=== PATIENT | female | born 1940 | race Caucasian/White ===

== ENCOUNTER 2017-12-15 11:10 | Emergency (ER) | payer MEDICARE, MEDICAID ==
[~2017-12-15] VITALS: Ht 154.9 cm; Wt 90.9 kg
[2017-12-15 12:14] LABS: BASOPHILS % (AUTO) 0.2 % (0-1); EOSINOPHILS # (AUTO) 0.2 X10'3 (0-0.9); EOSINOPHILS % (AUTO) 1.4 % (0-6); HEMATOCRIT 38.9 % (35.0-45.0); HEMOGLOBIN 13.1 g/dl (12.0-16.0); LYMPHOCYTES # (AUTO) 1.9 X10'3 (1.1-4.8); LYMPHOCYTES % (AUTO) 14.4 % (21-51); MEAN CORPUSCULAR HEMOGLOBIN 26.3 PG (27.0-31.0); MEAN CORPUSCULAR HGB CONC 33.6 % (33.0-36.5); MEAN CORPUSCULAR VOLUME 78.4 FL (78-98); MEAN PLATELET VOLUME 8.2 FL (7.4-10.4); MONOCYTES # (AUTO) 0.5 X10'3 (0-0.9); MONOCYTES % (AUTO) 4.1 % (2-12); NEUTROPHILS # (AUTO) 10.5 X10'3 (1.8-7.7); NEUTROPHILS % (AUTO) 79.9 % (42-75); PLATELET COUNT 306 X10'3 (140-440); RED BLOOD COUNT 4.96 X10'6 (4.20-5.60); RED CELL DISTRIBUTION WIDTH 14.5 % (11.5-14.5); WHITE BLOOD COUNT 13.1 X10'3 (4.5-11.0)
[2017-12-15] MEDS ORDERED: ipratropium/albuterol 3ml nebule NEB ONE (12:25)
[2017-12-15 12:28] LABS: ALANINE AMINOTRANSFERASE 20 U/L (12-78); ALBUMIN 3.4 G/DL (3.4-5.0); ALBUMIN/GLOBULIN RATIO 0.7 (1.1-1.5); ALKALINE PHOSPHATASE 67 IU/L (46-116); ANION GAP 9 (8-16); ASPARTATE AMINO TRANSFERASE 14 U/L (10-37); BILIRUBIN,TOTAL 0.3 MG/DL (0.1-1.0); BLOOD UREA NITROGEN 16 MG/DL (7-18); BUN/CREATININE RATIO 12.5 (6.6-38.0); CALCIUM 9.8 MG/DL (8.5-10.1); CHLORIDE 101 MMOL/L (99-107); CREATININE 1.28 MG/DL (0.40-0.90); GLUCOSE 141 MG/DL (70-104); POTASSIUM 5.1 MMOL/L (3.5-5.1); SODIUM 143 MMOL/L (135-145); TOTAL CARBON DIOXIDE 33.3 MMOL/L (24-32); TOTAL PROTEIN 8.1 G/DL (6.4-8.2); eGFR 41 ML/MIN
[2017-12-15] MEDS ORDERED: ondansetron 4mg rapidly disintigrating tab PO ONE (12:30)
[2017-12-15 12:34] LABS: PARTIAL THROMBOPLASTIN TIME 28 SECONDS (22-32); PROTHROMBIN TIME 10.2 SECONDS (9.0-12.0)
[2017-12-15 12:50] LABS: CLARITY,URINE CLEAR (Clear); COLOR,URINE YELLOW (Yellow); GLUCOSE, URINE NEGATIVE (Neg); KETONES,URINE NEGATIVE (Neg); LEUKOCYTE ESTERASE ,URINE TRACE (Neg); NITRITES, URINE NEGATIVE (Neg); OCCULT BLOOD,URINE NEGATIVE (Neg); PROTEIN,URINE NEGATIVE (Neg); UROBILINOGEN,URINE 0.2 E.U/dL (0.2-1.0)
[2017-12-15 12:54] LABS: UA COLLECTION TYPE STRAIGHT CATH
[2017-12-15 12:57] LABS: BACTERIA,URINE 1+ /HPF (Neg); HYALINE CASTS 0-3 /LPF (NEGATIVE); MUCUS STRANDS NONE SEEN /LPF (Neg); RBC,URINE NONE SEEN /HPF (0-2); SQUAMOUS EPITHELIAL CELL,UR NONE SEEN /LPF (FEW)
[2017-12-15] MEDS ORDERED: normal saline 1000ML IV soln IV ONE (13:15)
[2017-12-15] MEDS ORDERED: levoFLOXACIN 250mg tablet PO ONE (14:05)
[2017-12-15] MEDS ORDERED: zinc oxide ointment 30gm tube TP ONE ×2 (15:55→20:00)
[2017-12-15 16:11] VITALS: BP 134/96
== END 2017-12-15 16:14 | disposition home or self-care (01) ==
LOC: ER 11:11
DX: N39.0 Urinary tract infection, site not specified (principal); E87.2 Acidosis; I10 Essential (primary) hypertension; Z90.49 Acquired absence of other specified parts of digestive tract; Z98.890 Other specified postprocedural states; Z60.2 Problems related to living alone
CPT/HCPCS: 36415; 71045; 80053; 81001; 83605; 83880; 84145; 84484; 85025; 85610; 85730; 87040; 87077; 87088; 87186; 93005; 94640; 94760; 99285; J7030

== ENCOUNTER 2018-07-09 10:51 | Inpatient (IN) | payer MEDICARE, MEDICAID ==
[~2018-07-09] VITALS: Ht 165.1 cm; Wt 90.9 kg
[2018-07-09] MEDS ORDERED: normal saline 1000ML IV soln IVB ONE (11:25)
[2018-07-09 11:37] LABS: BASOPHILS # (AUTO) 0.1 X10'3 (0-0.2); BASOPHILS % (AUTO) 0.7 % (0-1); EOSINOPHILS # (AUTO) 0.1 X10'3 (0-0.9); EOSINOPHILS % (AUTO) 1.2 % (0-6); HEMATOCRIT 31.3 % (35.0-45.0); HEMOGLOBIN 10.5 g/dl (12.0-16.0); LYMPHOCYTES # (AUTO) 1.1 X10'3 (1.1-4.8); LYMPHOCYTES % (AUTO) 15.4 % (21-51); MEAN CORPUSCULAR HEMOGLOBIN 27.1 PG (27.0-31.0); MEAN CORPUSCULAR HGB CONC 33.6 % (33.0-36.5); MEAN CORPUSCULAR VOLUME 80.6 FL (78-98); MEAN PLATELET VOLUME 7.7 FL (7.4-10.4); MONOCYTES # (AUTO) 0.4 X10'3 (0-0.9); MONOCYTES % (AUTO) 6.1 % (2-12); NEUTROPHILS # (AUTO) 5.5 X10'3 (1.8-7.7); NEUTROPHILS % (AUTO) 76.6 % (42-75); PLATELET COUNT 290 X10'3 (140-440); RED BLOOD COUNT 3.88 X10'6 (4.20-5.60); RED CELL DISTRIBUTION WIDTH 14.4 % (11.5-14.5); WHITE BLOOD COUNT 7.2 X10'3 (4.5-11.0)
[2018-07-09 11:50] LABS: INR 1.1 INR; PARTIAL THROMBOPLASTIN TIME 36 SECONDS (22-32); PROTHROMBIN TIME 11.5 SECONDS (9.0-12.0)
[2018-07-09 11:52] LABS: ALANINE AMINOTRANSFERASE 15 U/L (12-78); ALBUMIN 2.5 G/DL (3.4-5.0); ALBUMIN/GLOBULIN RATIO 0.6 (1.1-1.5); ALKALINE PHOSPHATASE 79 IU/L (46-116); ANION GAP 10 (8-16); ASPARTATE AMINO TRANSFERASE 13 U/L (10-37); BILIRUBIN,TOTAL 0.6 MG/DL (0.1-1.0); BLOOD UREA NITROGEN 9 MG/DL (7-18); BUN/CREATININE RATIO 9.5 (6.6-38.0); CALCIUM 8.8 MG/DL (8.5-10.1); CHLORIDE 103 MMOL/L (99-107); CREATININE 0.95 MG/DL (0.40-0.90); GLUCOSE 170 MG/DL (70-104); LIPASE 196 U/L (73-393); MAGNESIUM 1.7 MG/DL (1.5-2.4); POTASSIUM 4.1 MMOL/L (3.5-5.1); SODIUM 137 MMOL/L (135-145); TOTAL CARBON DIOXIDE 23.7 MMOL/L (24-32); TOTAL PROTEIN 6.9 G/DL (6.4-8.2); eGFR 57 ML/MIN
--- NOTE | 2018-07-09 13:16 | NUR ---
PATIENT'S DAUGHTER, MAYKEL, CALLED FOR CONDITION REPORT. INFORMED THAT THE WORK-UP WAS STILL IN PROGRESS. MAYKEL CONTACT NUMBER: [phone].
[2018-07-09 13:27] LABS: CLARITY,URINE CLEAR (Clear); COLOR,URINE YELLOW (Yellow); GLUCOSE, URINE NEGATIVE (Neg); KETONES,URINE NEGATIVE (Neg); LEUKOCYTE ESTERASE ,URINE SMALL (Neg); NITRITES, URINE NEGATIVE (Neg); OCCULT BLOOD,URINE NEGATIVE (Neg); PH,URINE 5.5 (4.8-8.0); PROTEIN,URINE NEGATIVE (Neg); UROBILINOGEN,URINE 0.2 E.U/dL (0.2-1.0)
[2018-07-09 13:33] LABS: UA COLLECTION TYPE STRAIGHT CATH
[2018-07-09 13:34] LABS: BACTERIA,URINE FEW /HPF (Neg); MUCUS STRANDS FEW /LPF (Neg); RBC,URINE NONE SEEN /HPF (0-2); SQUAMOUS EPITHELIAL CELL,UR FEW /LPF (FEW); WBC,URINE 20-30 /HPF (0-4)
[2018-07-09] MEDS ORDERED: CefTRIAXone/D5W-Rocephin 1gm 50 ML IV ONE (13:45)
[2018-07-09] MEDS ORDERED: CIPR-230 PO (13:45)
--- NOTE | 2018-07-09 14:50 | NUR ---
TELEPHONE CALL TO POST ACUTE FACILITY ([facility]) WITH UPDATE AND TO INFORM OF PATIENT DC STATUS. NURSE STATES THAT FAMILY IS CONCERNED THAT PATIENT HAS BEEN HAVING DIFFICULTY SWALLOWING SINCE TUESDAY. ER MD NOTIFIED AND REQUESTED SWALLOW CHALLENGE.
--- NOTE | 2018-07-09 15:00 | NUR ---
PATIENT GIVEN 3 SIPS OF WATER. PATIENT DROOPING WATER OUT OF OPEN MOUTH AND HAD COUGHING EPISODE WITH FINAL SIP. ER MD NOTIFIED OF FAILED WATER INTRODUCTION.
--- NOTE | 2018-07-09 15:41 | NUR ---
RETURNED FROM CT SCAN PER KATIUSKA.
[2018-07-09] MEDS ORDERED: mag hydrox/Alum hydrox/simeth 30ml oral suspension PO PRN (16:05)
[2018-07-09] MEDS ORDERED: acetaminophen 325mg tablet PO PRN (16:05)
[2018-07-09] MEDS ORDERED: ondansetron/PF 4mg/2ml inj IV PRN (16:05)
[2018-07-09] MEDS ORDERED: aspirin 300mg supp.rect RC SCH (16:05)
[2018-07-09] MEDS ORDERED: magnesium hydroxide 30ml (MOM) UD suspension PO PRN ×2 (16:05→17:40)
--- NOTE | 2018-07-09 16:26 | NUR ---
Patient's daughter, Andreina, called in for condition report.
[2018-07-09 16:36] LABS: CHOL/HDL RATIO 3.6 (0.00-4.99); CHOLESTEROL 132 MG/DL (0-200); HDL CHOLESTEROL 37 MG/DL (35-60); LDL CHOLESTEROL 75 MG/DL (50-100); TRIGLYCERIDES 132 MG/DL (20-135)
[2018-07-09] MEDS ORDERED: QUET50TA PO ×2 (16:42→17:11)
[2018-07-09] MEDS ORDERED: CALC355O3 PO (16:42)
[2018-07-09] MEDS ORDERED: DIGO125T78 PO (16:42)
[2018-07-09] MEDS ORDERED: MAGN400T6 PO (16:42)
[2018-07-09] MEDS ORDERED: TIOT4MIS5 PO (17:11)
[2018-07-09] MEDS ORDERED: METO50TA7 PO (17:11)
[2018-07-09] MEDS ORDERED: OMEP20CA10 PO (17:11)
[2018-07-09] MEDS ORDERED: NA P133E4 RC (17:11)
[2018-07-09] MEDS ORDERED: METF500T PO (17:11)
[2018-07-09] MEDS ORDERED: FURO40TA4 PO (17:11)
[2018-07-09] MEDS ORDERED: DULA1.5P SQ (17:11)
[2018-07-09] MEDS ORDERED: CARSR60C PO (17:11)
[2018-07-09] MEDS ORDERED: RIVA20TA PO (17:11)
[2018-07-09] MEDS ORDERED: DULO-31 PO (17:11)
[2018-07-09] MEDS ORDERED: LISI40TA4 PO (17:11)
[2018-07-09] MEDS ORDERED: ACET-2119 PO (17:11)
[2018-07-09] MEDS ORDERED: FLUT200B3 PO (17:11)
[2018-07-09] MEDS ORDERED: ONDA4TAB6 PO (17:11)
[2018-07-09] MEDS ORDERED: LINA5TAB4 PO (17:11)
[2018-07-09] MEDS ORDERED: BISA10SU60 RC (17:11)
[2018-07-09] MEDS ORDERED: POTA10TA10 PO (17:11)
[2018-07-09] MEDS ORDERED: MAGN400O6 PO (17:11)
[2018-07-09] MEDS ORDERED: LYR75C PO (17:11)
--- NOTE | 2018-07-09 17:15 | NUR ---
Echocardiogram performed at the bedside
--- NOTE | 2018-07-09 17:25 | NUR ---
REPORT CALLED TO DARIAN CURRY ON ORTHO/NEURO. ALL QUESTIONS ANSWERED.
[2018-07-09] MEDS ORDERED: non-formulary drug (Na Phos,M-B/Na Phos,Di-Ba* (Fleet's Enema*) 1 BOTTLE) RC PRN (17:40)
[2018-07-09] MEDS ORDERED: bisacodyl 10mg suppository rectal RC PRN (17:40)
[2018-07-09] MEDS ORDERED: digoxin 125mcg (0.125mg) tablet PO SCH (17:40)
[2018-07-09] MEDS ORDERED: MAGNESIUM HYDROXIDE PO SCH (17:40)
[2018-07-09] MEDS ORDERED: non-formulary drug (Dulaglutide (Trulicity) 0.5 ML) SQ SCH (17:40)
[2018-07-09] MEDS ORDERED: CALCIUM CARBONATE PO SCH (17:40)
--- NOTE | 2018-07-09 17:40 | NUR ---
MED GIVEN ORDERED. BG CHECK = 150. PATIENT READY FOR TRANSFER TO INPATIENT ADMISSION.
[2018-07-09] MEDS: normal saline 1000ml 1,000 ML IV SCH (18:06)
[2018-07-09] MEDS ORDERED: ondansetron 4mg rapidly disintigrating tab PO PRN (18:25)
--- NOTE | 2018-07-09 18:25 | NUR ---
Received report from Geovanna FARMER, assumed care of patient.
--- NOTE | 2018-07-09 18:29 | NUR ---
MALIK BRAR [phone]
[2018-07-09 18:45] VITALS: BP 175/78
[2018-07-09] MEDS ORDERED: QUETIAPINE FUMARATE PO SCH (20:00)
[2018-07-09] MEDS ORDERED: QUEtiapine 25mg tablet PO SCH (20:00)
[2018-07-09] MEDS ORDERED: heparin, porcine 5000 units/ml vial SQ SCH (20:00)
[2018-07-09 22:00] VITALS: BP 157/79
[2018-07-10 02:00] VITALS: BP 158/76
[2018-07-10] MEDS: ipratropium 0.5 MG/2.5ML nebule IH SCH ×3 (02:28→15:18)
[2018-07-10] MEDS: normal saline 1000ml 1,000 ML IV SCH (03:08)
[2018-07-10 06:00] VITALS: BP 150/91
--- NOTE | 2018-07-10 06:15 | NUR ---
Report given to Janett FARMER.
[2018-07-10] MEDS ORDERED: metFORMIN 500mg tablet PO SCH (07:00)
[2018-07-10 07:03] LABS: BASOPHILS % (AUTO) 0.5 % (0-1); EOSINOPHILS # (AUTO) 0.1 X10'3 (0-0.9); EOSINOPHILS % (AUTO) 1.3 % (0-6); HEMATOCRIT 27.9 % (35.0-45.0); HEMOGLOBIN 9.4 g/dl (12.0-16.0); MEAN CORPUSCULAR HEMOGLOBIN 27.4 PG (27.0-31.0); MEAN CORPUSCULAR HGB CONC 33.8 % (33.0-36.5); MEAN CORPUSCULAR VOLUME 81.1 FL (78-98); MEAN PLATELET VOLUME 7.4 FL (7.4-10.4); MONOCYTES # (AUTO) 0.4 X10'3 (0-0.9); MONOCYTES % (AUTO) 7.4 % (2-12); NEUTROPHILS # (AUTO) 3.8 X10'3 (1.8-7.7); NEUTROPHILS % (AUTO) 71.8 % (42-75); PLATELET COUNT 260 X10'3 (140-440); RED BLOOD COUNT 3.44 X10'6 (4.20-5.60); RED CELL DISTRIBUTION WIDTH 14.6 % (11.5-14.5); WHITE BLOOD COUNT 5.3 X10'3 (4.5-11.0)
[2018-07-10 07:09] LABS: ALBUMIN 2.3 G/DL (3.4-5.0); ANION GAP 11 (8-16); BLOOD UREA NITROGEN 7 MG/DL (7-18); BUN/CREATININE RATIO 8.8 (6.6-38.0); CALCIUM 8.1 MG/DL (8.5-10.1); CHLORIDE 106 MMOL/L (99-107); GLUCOSE 145 MG/DL (70-104); POTASSIUM 3.6 MMOL/L (3.5-5.1); SODIUM 140 MMOL/L (135-145); eGFR 70 ML/MIN
[2018-07-10] MEDS ORDERED: pantoprazole 40mg Tablet.DR PO SCH (07:30)
[2018-07-10] MEDS ORDERED: CefTRIAXone/D5W-Rocephin 1gm 50 ML IV SCH (08:00)
[2018-07-10] MEDS ORDERED: lisinopril 20mg tablet PO SCH (08:00)
[2018-07-10] MEDS ORDERED: linagliptin 5mg tablet PO SCH (08:00)
[2018-07-10] MEDS ORDERED: pregabalin 75mg capsule PO SCH (08:00)
[2018-07-10] MEDS ORDERED: diltiazem 30mg tablet PO SCH (08:00)
[2018-07-10] MEDS ORDERED: duloxetine 30mg CAPSULE.DR PO SCH (08:00)
[2018-07-10] MEDS ORDERED: metoprolol succinate 25mg (24-HOUR) SR. Tablet PO SCH (08:00)
[2018-07-10] MEDS ORDERED: potassium chloride 10mEq ER tablet PO SCH (08:00)
[2018-07-10] MEDS ORDERED: rivaroxaban 20mg tablet PO SCH (08:00)
[2018-07-10] MEDS ORDERED: furosemide 40mg tablet PO SCH (08:00)
[2018-07-10] MEDS ORDERED: budesonide 0.5mg/2ml UD nebule IH SCH (08:00)
[2018-07-10] MEDS ORDERED: DULAGLUTIDE SQ SCH (08:00)
[2018-07-10 09:30] VITALS: BP 200/87
[2018-07-10 10:50] VITALS: BP 155/86
[2018-07-10 14:00] VITALS: BP 185/92
[2018-07-10] MEDS ORDERED: iohexol 350MG/ML 100ml bottle IV ONE (14:19)
[2018-07-10] MEDS ORDERED: MESSAGE TO NURSING PO SCH (16:00)
--- NOTE | 2018-07-10 16:30 | NUR ---
DAUGHTER CALLED FOR UPDATE ON CTA. STATED NO NEW CHANGES, RETURNING PATIENT TO [facility]
[2018-07-12] MEDS ORDERED: metFORMIN 500mg tablet PO SCH (17:00)
== END 2018-07-10 17:15 | DRG 689 ==
LOC: ER 10:51 → ED HOLD 16:05 → ORTHO 4S 18:10
PROVIDERS: ADMIT Family Medicine; ATTEND Family Medicine
PROC: B32R1ZZ Computerized Tomography (CT Scan) of Intracranial Arteries using Low Osmolar Contrast (ICD-10-PCS; principal; 2018-07-10)
PROC: B32G1ZZ Computerized Tomography (CT Scan) of Bilateral Vertebral Arteries using Low Osmolar Contrast (ICD-10-PCS; 2018-07-10)
DX: N39.0 Urinary tract infection, site not specified (principal); G93.41 Metabolic encephalopathy; I63.9 Cerebral infarction, unspecified; I69.354 Hemiplegia and hemiparesis following cerebral infarction affecting left non-dominant side; R13.10 Dysphagia, unspecified; I48.2 Chronic atrial fibrillation; E03.9 Hypothyroidism, unspecified; E78.5 Hyperlipidemia, unspecified; E66.9 Obesity, unspecified; J44.9 Chronic obstructive pulmonary disease, unspecified; I65.01 Occlusion and stenosis of right vertebral artery; I66.21 Occlusion and stenosis of right posterior cerebral artery; E11.9 Type 2 diabetes mellitus without complications; I10 Essential (primary) hypertension; Z74.01 Bed confinement status; Z90.49 Acquired absence of other specified parts of digestive tract; Z90.710 Acquired absence of both cervix and uterus; Z68.33 Body mass index [BMI] 33.0-33.9, adult
CPT/HCPCS: 36415; 70450; 70496; 71045; 74176; 80048; 80053; 80061; 80162; 81001; 82948; 83036; 83605; 83690; 83735; 84145; 85025; 85610; 85730; 87040; 87070; 87088; 92616; 93005; 93306; 93880; 94640; 94760; 96361; 96374; 97162; 97530; 99285; G0378; J0696; J1644; J7030; J7626; Q9967